=== PATIENT | female | born 1985 | race Hispanic/Latino ===

== ENCOUNTER 2017-07-28 16:59 | Day surgery (SDC) | payer OTHER ==
[~2017-07-28] VITALS: Ht 160 cm; Wt 59.0 kg
[~2017-07-28 16:59] MED LIST: CIPROFLOXACN500 MG PO; NAPROSYN500 MG PO
[2017-07-28] MEDS ORDERED: PRENATAL1 TA1 PO (17:51)
[2017-07-28 19:03] LABS: URINE BILIRUBIN - DIPSTICK NEGATIVE (NEGATIVE); URINE BLOOD DIPSTICK TRACE-INTACT (NEGATIVE); URINE CLARITY CLEAR; URINE COLOR YELLOW; URINE GLUCOSE - DIPSTICK NEGATIVE (NEGATIVE); URINE KETONE NEGATIVE (NEGATIVE); URINE LEUK ESTERASE NEGATIVE (NEGATIVE); URINE NITRITE - DIPSTICK NEGATIVE (Negative); URINE PROTEIN - DIPSTICK NEGATIVE (NEG-TRACE); URINE SPECIFIC GRAVITY 1.025; URINE UROBILINOGEN - DIPSTICK 0.2 E.U./dL (0.2)
[2017-07-28 19:22] LABS: HEMATOCRIT 33.8 % (37.0-47.0); HEMOGLOBIN 11.2 g/dl (12.0-16.0); IMMATURE GRANULOCYTES 0.4 % (0.0-1.0); MEAN CELL VOLUME 73.6 fL CALC (80.0-100.0); MEAN CORPUSCULAR HGB 24.4 pG CALC (26.0-32.0); MEAN CORPUSCULAR HGB CONC 33.1 g/L CALC (32.0-36.0); NEUT# 6.78 thou/uL (2.00-7.15); RED BLOOD COUNT 4.59 mill/uL (4.20-5.60); RED CELL DISTRI WIDTH 16.1 % (11.5-15.5)
[2017-07-29 01:58] VITALS: BP 99/59
[2017-07-29] MEDS ORDERED: NORCO1 TA1 PO (02:00)
== END 2017-07-29 02:23 | disposition home or self-care (01) | DRG 770 ==
LOC: ED 16:59 → ED-I 23:00 → ED 23:30 → ORM 23:30
PROVIDERS: Emergency Medicine
PROC: 10D17ZZ Extraction of Products of Conception, Retained, Via Natural or Artificial Opening (ICD-10-PCS; principal; 2017-07-29)
DX: O03.4 Incomplete spontaneous abortion without complication (principal)